=== PATIENT | male | born 1995 | race American Indian/Alaskan Native ===

== ENCOUNTER 2018-06-18 16:16 | Emergency (ER) | payer OTHER ==
[2018-06-18 16:29] VITALS: BP 121/64
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
[2018-06-18] MEDS ORDERED: NORCO 5/325 PO ONE (20:06)
[2018-06-18] MEDS ORDERED: FLEXERIL PO ONE (20:06)
== END 2018-06-18 20:50 | disposition home or self-care (01) ==
LOC: ED 16:16
DX: S16.1XXA Strain of muscle, fascia and tendon at neck level, initial encounter (principal); V49.49XA Driver injured in collision with other motor vehicles in traffic accident, initial encounter; Y93.89 Activity, other specified; Y99.8 Other external cause status; Y92.488 Other paved roadways as the place of occurrence of the external cause
CPT/HCPCS: 99283